=== PATIENT | male | born 1960 | race Caucasian/White ===

== ENCOUNTER 2016-11-06 13:51 | Emergency (ER) | payer MEDICAID ==
[~2016-11-06] VITALS: Ht 177.8 cm; Wt 84.4 kg
[2016-11-06 16:50] LABS: Basophils # (auto) 0.1 uL; Basophils % (auto) 0.5 % (0.0-2.0); Eosinophils # (auto) 0.1 uL; Eosinophils % (auto) 1.3 % (0.0-7.0); Hematocrit 49.8 % (41.0-53.0); Hemoglobin 16.8 g/dL (13.5-17.5); Lymphocytes # (auto) 2.8 uL; Lymphocytes % (auto) 28.5 % (10.0-50.0); Mean Corpuscular Hemoglobin 29.4 pg (28.0-32.0); Mean Corpuscular Hgb Conc. 33.7 g/dL (32.0-36.0); Mean Corpuscular Volume 87.2 fL (80.0-100.0); Mean Platelet Volume 7.2 fL (7.4-10.4); Monocytes # (auto) 0.7 uL; Monocytes % (auto) 6.7 % (0.0-12.0); Neutrophils # (auto) 6.3 uL; Platelet Count (auto) 320 10^3/uL (140-450); Red Cell Distribution Width 14.4 % (11.6-16.0)
[2016-11-06 17:04] LABS: Urine Bilirubin Negative (Negative); Urine Blood Negative /uL (Negative); Urine Color Yellow (Yellow); Urine Glucose Normal (Normal); Urine Ketone Negative (Negative); Urine Nitrite Negative (Negative); Urine RBC <1 /hpf (0 - 3); Urine Urobilinogen Normal (Negative); Urine pH 5.5 (5.0-8.0)
[2016-11-06 17:10] LABS: BUN/Creatinine Ratio 19.4; Bilirubin, Total 0.6 mg/dL (0.2-1.0); Calcium 9.1 mg/dL (8.5-10.1); Potassium 4.9 mmol/L (3.5-5.1); Total Protein 7.9 g/dL (6.4-8.2)
[2016-11-06 17:44] VITALS: BP 126/72
== END 2016-11-06 18:14 | disposition home or self-care (01) ==
LOC: ER 14:06
DX: K40.90 Unilateral inguinal hernia, without obstruction or gangrene, not specified as recurrent (principal); N43.3 Hydrocele, unspecified; I86.1 Scrotal varices; Z87.891 Personal history of nicotine dependence
CPT/HCPCS: 36415; 76870; 80053; 81001; 85025

== ENCOUNTER 2021-01-11 21:19 | Inpatient (IN) | payer MEDICAID, OTHER ==
[~2021-01-11] VITALS: Ht 180.3 cm; Wt 87.0 kg
[2021-01-12] MEDS ORDERED: MORPHINE SULF INJ 2 MG/ML SYRINGE 1ML IM ONE ×2 (01:00→04:30)
[2021-01-12 01:57] LABS: Basophils # (auto) 0.1 10 ^3/uL (0-0.2); Basophils % (auto) 0.8 % (0.0-2.0); Eosinophils # (auto) 0.2 10 ^3/uL (0-0.8); Eosinophils % (auto) 1.6 % (0.0-7.0); Hematocrit 45.6 % (41.0-53.0); Hemoglobin 15.9 g/dL (13.5-17.5); Lymphocytes # (auto) 3.2 10 ^3/uL (0.4-5.4); Mean Corpuscular Hgb Conc. 34.8 g/dL (32.0-36.0); Mean Corpuscular Volume 86.2 fL (80.0-100.0); Monocytes # (auto) 0.7 10 ^3/uL (0-1.3); Monocytes % (auto) 7.3 % (0.0-12.0); Neutrophils # (auto) 5.8 10 ^3/uL (1.6-8.6); Neutrophils % (auto) 58.3 % (37.0-80.0); Nucleated Red Blood Cells % 0.1 %; Red Blood Cells 5.29 10^6/uL (4.5-5.90); Red Cell Distribution Width 15.1 % (11.8-14.3); White Blood Cell 9.9 10^3/uL (4.4-10.8)
[2021-01-12 02:16] LABS: Albumin 3.9 g/dL (3.4-5.0); BUN/Creatinine Ratio 19.2; Potassium 3.9 mmol/L (3.5-5.1)
[2021-01-12 02:19] LABS: Bilirubin, Total 0.6 mg/dL (0.2-1.0); Total Protein 7.3 g/dL (6.4-8.2)
[2021-01-12] MEDS ORDERED: IOHEXOL 300 MG/ML 100ML BOTTLE IJ ONE (03:29)
[2021-01-12] MEDS ORDERED: MORPHINE SULF INJ 2 MG/ML SYRINGE 1ML IV ONE (05:30)
[2021-01-12 06:11] LABS: INR 1.09 (0.9-1.15); Partial Thromboplastin Time 29.3 sec (23.0-31.2)
[2021-01-12] MEDS ORDERED: ONDANSETRON HCL 4 MG/2 ML VIAL IV PRN (06:45)
[2021-01-12] MEDS: SODIUM CHLORIDE 0.9% 1,000 ML IV SCH ×2 (08:48→18:27)
[2021-01-12] MEDS: PANTOPRAZOLE 40 MG/10 ML VIAL INJ IV SCH (10:11)
[2021-01-12 13:00] VITALS: BP 154/74
[2021-01-12] MEDS ORDERED: cefTRIAXone 1GM/50ML D5W 50 ML IV ONE (13:00)
[2021-01-12] MEDS: MORPHINE SULFATE 4 MG/ML SYR/VIAL IV PRN (13:22)
[2021-01-12 13:44] VITALS: BP 136/80
[2021-01-12] MEDS: metroNIDAZOLE 500MG/100ML 100 ML IV SCH ×2 (15:57→21:17)
[2021-01-12 17:00] VITALS: BP 140/67
[2021-01-12 22:00] VITALS: BP 120/81
[2021-01-13 05:00] VITALS: BP 154/89
[2021-01-13 05:26] LABS: Basophils # (auto) 0.1 10 ^3/uL (0-0.2); Basophils % (auto) 0.8 % (0.0-2.0); Eosinophils # (auto) 0.2 10 ^3/uL (0-0.8); Eosinophils % (auto) 1.7 % (0.0-7.0); Hematocrit 45.6 % (41.0-53.0); Hemoglobin 15.7 g/dL (13.5-17.5); Lymphocytes # (auto) 2.9 10 ^3/uL (0.4-5.4); Lymphocytes % (auto) 29.7 % (10.0-50.0); Mean Corpuscular Hemoglobin 30.1 pg (28.0-32.0); Mean Corpuscular Hgb Conc. 34.4 g/dL (32.0-36.0); Mean Corpuscular Volume 87.4 fL (80.0-100.0); Monocytes # (auto) 0.6 10 ^3/uL (0-1.3); Monocytes % (auto) 6.6 % (0.0-12.0); Neutrophils % (auto) 61.2 % (37.0-80.0); Nucleated Red Blood Cells % 0.2 %; Red Blood Cells 5.22 10^6/uL (4.5-5.90); Red Cell Distribution Width 15.1 % (11.8-14.3); White Blood Cell 9.8 10^3/uL (4.4-10.8)
[2021-01-13] MEDS: SODIUM CHLORIDE 0.9% 1,000 ML IV SCH ×2 (05:26→17:56)
[2021-01-13] MEDS: metroNIDAZOLE 500MG/100ML 100 ML IV SCH ×3 (05:26→22:35)
[2021-01-13 05:41] LABS: Potassium 4.1 mmol/L (3.5-5.1)
[2021-01-13 05:45] LABS: BUN/Creatinine Ratio 21.9
[2021-01-13] MEDS: HYDROcodone-ACET 7.5/325MG TAB PO PRN ×3 (06:28→18:53)
[2021-01-13 08:00] VITALS: BP 139/88
[2021-01-13] MEDS: PANTOPRAZOLE 40 MG/10 ML VIAL INJ IV SCH (08:46)
[2021-01-13] MEDS: cefTRIAXone 1GM/50ML D5W 50 ML IV SCH (08:46)
[2021-01-13 09:00] VITALS: BP 139/88
[2021-01-13 13:00] VITALS: BP 134/50
[2021-01-13 17:00] VITALS: BP 137/90
[2021-01-13] MEDS ORDERED: ZOLPIDEM TARTRATE 5 MG TAB PO PRN (19:45)
[2021-01-13 22:00] VITALS: BP 133/73
[2021-01-13] MEDS: LACTULOSE 20Gm/30ML SOLN PO PRN (22:35)
[2021-01-14] MEDS: HYDROcodone-ACET 7.5/325MG TAB PO PRN ×2 (01:05→08:10)
[2021-01-14 05:00] VITALS: BP 157/90
[2021-01-14] MEDS: SODIUM CHLORIDE 0.9% 1,000 ML IV SCH ×2 (05:49→17:35)
[2021-01-14] MEDS: metroNIDAZOLE 500MG/100ML 100 ML IV SCH ×3 (06:23→22:45)
[2021-01-14] MEDS: cefTRIAXone 1GM/50ML D5W 50 ML IV SCH (08:09)
[2021-01-14] MEDS: PANTOPRAZOLE 40 MG/10 ML VIAL INJ IV SCH (08:09)
[2021-01-14] MEDS: LACTULOSE 20Gm/30ML SOLN PO PRN (08:10)
[2021-01-14 09:00] VITALS: BP 154/95
[2021-01-14] MEDS: DOCUSATE SOD 100 MG CAP PO SCH ×2 (11:22→22:45)
[2021-01-14] MEDS: MORPHINE SULFATE 4 MG/ML SYR/VIAL IV PRN ×2 (12:56→20:34)
[2021-01-14 12:59] VITALS: BP 134/90
[2021-01-14 16:54] VITALS: BP 150/88
[2021-01-14 22:00] VITALS: BP 159/99
[2021-01-15] MEDS: MORPHINE SULFATE 4 MG/ML SYR/VIAL IV PRN ×3 (00:45→10:09)
[2021-01-15 05:00] VITALS: BP 156/80
[2021-01-15 06:12] LABS: Urine Bacteria NONE SEEN /hpf (None Seen); Urine Blood Negative /uL (Negative); Urine WBC <1 /hpf (0 - 3)
[2021-01-15] MEDS: metroNIDAZOLE 500MG/100ML 100 ML IV SCH ×3 (06:18→21:15)
[2021-01-15] MEDS: SODIUM CHLORIDE 0.9% 1,000 ML IV SCH ×2 (06:18→15:44)
[2021-01-15] MEDS: cefTRIAXone 1GM/50ML D5W 50 ML IV SCH (08:08)
[2021-01-15] MEDS: PANTOPRAZOLE 40 MG/10 ML VIAL INJ IV SCH (08:08)
[2021-01-15] MEDS: DOCUSATE SOD 100 MG CAP PO SCH ×2 (08:08→21:15)
[2021-01-15 09:00] VITALS: BP 129/72
[2021-01-15] MEDS ORDERED: ETOMIDATE (2MG/ML) 20ML VIAL IV ONE (12:25)
[2021-01-15] MEDS ORDERED: SUCCINYLCHOLINE CHLORIDE 20 MG/ML 10ML VIAL IV ONE (12:25)
[2021-01-15] MEDS ORDERED: BUPIVACAINE W/ EPINEPH 0.25% INJ 50ML MDV ONE (12:31)
[2021-01-15] MEDS ORDERED: MIDAZOLAM HCL 2MG/2ML 2ml VIAL (1mg/ml) ONE (12:45)
[2021-01-15] MEDS ORDERED: MEPERIDINE HCL (25 MG/ML) 1ML VIAL ONE (12:45)
[2021-01-15] MEDS ORDERED: fentaNYL CITRATE 100 MCG/2 ML VL ONE (12:45)
[2021-01-15] MEDS ORDERED: PROPOFOL 10 MG/ML 20 ML IV ONE (13:07)
[2021-01-15] MEDS ORDERED: ONDANSETRON HCL 4 MG/2 ML VIAL ONE (13:07)
[2021-01-15] MEDS ORDERED: DexAMETHasone SOD PHOS 10MG/1ML VIAL INJ ONE (13:07)
[2021-01-15] MEDS ORDERED: MORPHINE SULFATE 4 MG/ML SYR/VIAL IV PRN (13:15)
[2021-01-15] MEDS ORDERED: MIDAZOLAM HCL 2MG/2ML 2ml VIAL (1mg/ml) IV PRN (13:15)
[2021-01-15] MEDS ORDERED: HYDROmorphone HCL 2 MG/ML VL IV PRN (13:15)
[2021-01-15] MEDS ORDERED: LABETALOL HCL 5 MG/ML 4ML SYRINGE IV PRN (13:15)
[2021-01-15] MEDS ORDERED: ONDANSETRON HCL 4 MG/2 ML VIAL IV PRN (13:15)
[2021-01-15] MEDS ORDERED: ePHEDrine SULFATE 50 MG/ML AMP IV PRN (13:15)
[2021-01-15] MEDS ORDERED: hydrALAZINE HCL 20 MG/ML VL IV PRN (13:15)
[2021-01-15] MEDS ORDERED: ROCURONIUM 10MG/ML 10ML VIAL IV ONE (13:32)
[2021-01-15 17:00] VITALS: BP 125/75
[2021-01-15 22:00] VITALS: BP 131/77
[2021-01-16 05:00] VITALS: BP_SYST 107; BP_SYST 151; BP_DIAS 55; BP_DIAS 71
[2021-01-16] MEDS: SODIUM CHLORIDE 0.9% 1,000 ML IV SCH ×3 (06:05→22:10)
[2021-01-16] MEDS: metroNIDAZOLE 500MG/100ML 100 ML IV SCH ×3 (06:05→21:11)
[2021-01-16] MEDS: HYDROcodone-ACET 7.5/325MG TAB PO PRN ×2 (06:20→21:10)
[2021-01-16] MEDS: PANTOPRAZOLE 40 MG/10 ML VIAL INJ IV SCH (08:33)
[2021-01-16] MEDS: cefTRIAXone 1GM/50ML D5W 50 ML IV SCH (08:33)
[2021-01-16] MEDS: DOCUSATE SOD 100 MG CAP PO SCH ×2 (08:34→21:11)
[2021-01-16 09:00] VITALS: BP 110/66
[2021-01-16 12:30] VITALS: BP 130/76
[2021-01-16] MEDS ORDERED: FLEET MINERAL OIL ENEMA 133 ML PR ONE (13:30)
[2021-01-16] MEDS ORDERED: GASTROGRAFIN 120 ML SOL ONE (13:56)
[2021-01-16] MEDS: MORPHINE SULFATE 4 MG/ML SYR/VIAL IV PRN (16:46)
[2021-01-16 17:00] VITALS: BP 154/59
[2021-01-16] MEDS ORDERED: LORazepam 0.5 MG TAB PO ONE (20:30)
[2021-01-16] MEDS: LACTULOSE 20Gm/30ML SOLN PO PRN (21:10)
[2021-01-17] MEDS: SODIUM CHLORIDE 0.9% 1,000 ML IV SCH ×2 (03:51→16:11)
[2021-01-17 05:00] VITALS: BP 150/80
[2021-01-17] MEDS: metroNIDAZOLE 500MG/100ML 100 ML IV SCH ×3 (05:13→22:13)
[2021-01-17 09:00] VITALS: BP 139/71
[2021-01-17] MEDS: cefTRIAXone 1GM/50ML D5W 50 ML IV SCH (09:36)
[2021-01-17] MEDS: PANTOPRAZOLE 40 MG/10 ML VIAL INJ IV SCH (09:37)
[2021-01-17] MEDS: DOCUSATE SOD 100 MG CAP PO SCH ×2 (09:37→22:13)
[2021-01-17] MEDS: HYDROcodone-ACET 7.5/325MG TAB PO PRN (09:37)
[2021-01-17 12:56] VITALS: BP 129/69
[2021-01-17 17:00] VITALS: BP 136/90
[2021-01-17] MEDS: LACTULOSE 20Gm/30ML SOLN PO PRN (17:13)
[2021-01-17] MEDS ORDERED: LORazepam 0.5 MG TAB PO PRN (22:00)
[2021-01-18] MEDS: SODIUM CHLORIDE 0.9% 1,000 ML IV SCH (03:47)
[2021-01-18 05:00] VITALS: BP 140/87
[2021-01-18] MEDS: metroNIDAZOLE 500MG/100ML 100 ML IV SCH (05:46)
[2021-01-18 08:15] VITALS: BP 130/66
[2021-01-18] MEDS: cefTRIAXone 1GM/50ML D5W 50 ML IV SCH (08:44)
[2021-01-18] MEDS: PANTOPRAZOLE 40 MG/10 ML VIAL INJ IV SCH (10:00)
[2021-01-18] MEDS: DOCUSATE SOD 100 MG CAP PO SCH (10:39)
[2021-01-18 12:18] VITALS: BP 124/72
== END 2021-01-18 13:55 | disposition home or self-care (01) | DRG 228 ==
LOC: ER 21:19 → OVERFLOW 01-12 06:32 → WEST WING 01-12 09:39
PROVIDERS: ADMIT Nurse Practitioner; ATTEND Family Medicine
PROC: 0YQ50ZZ Repair Right Inguinal Region, Open Approach (ICD-10-PCS; principal; 2021-01-15 12:36)
DX: K40.30 Unilateral inguinal hernia, with obstruction, without gangrene, not specified as recurrent (principal); Z20.822 Contact with and (suspected) exposure to COVID-19; Z87.891 Personal history of nicotine dependence
CPT/HCPCS: 36415; 71045; 73502; 74177; 76881; 80048; 80053; 81001; 85025; 85610; 85730; 86850; 86900; 86901; 87081; 87426; 96372; 96374; C9113; G0378; J0330; J0696; J1100; J2250; J2405; J2704; J3490